=== PATIENT | female | born 1960 | race Caucasian/White ===

== ENCOUNTER 2020-12-28 06:33 | Observation (INO) | payer OTHER ==
[2020-12-24 11:04] LABS: BLOOD UREA NITROGEN 8 mg/dL (7-26); BUN/CREATININE RATIO 10 (6-25); CALCIUM 7.4 mg/dL (8.4-10.2); CARBON DIOXIDE 23 mmol/L (22-29); CHLORIDE 99 mmol/L (98-107); CREATININE, SERUM 0.78 mg/dL (0.57-1.11); EST GLOMERULAR FILTRATION RATE > 60 ML/MIN (60-); GLUCOSE 235 mg/dL (74-118); SODIUM 138 mmol/L (136-145)
[~2020-12-28] VITALS: Ht 167.6 cm; Wt 133.4 kg
[~2020-12-28 06:33] MED LIST: BUPROPION XL150 MG PO; CALCITRIOL0.25 MCG PO; ELIQUIS5 MG PO; FEMARA2.5 MG PO; GABAPENTIN400 MG PO; LEVOTHYROXINE112 MCG PO; METFORMIN HCL500 MG PO; OMEPRAZOLE40 MG PO; SIMVASTATIN20 MG PO; SOTALOL80 MG PO; VIT C PO; VIT D PO
[2020-12-28] MEDS ORDERED: DEXAMETHASONE SOD PHOS 10 MG/1 ML VIAL ONE (07:39)
[2020-12-28] MEDS ORDERED: CELECOXIB 200 MG CAP ONE (07:39)
[2020-12-28] MEDS ORDERED: CEFAZOLIN SOD 1 GM/NS 50ML 100 ML IV ONE (07:40)
[2020-12-28] MEDS ORDERED: GABAPENTIN 300 MG CAP ONE (07:40)
[2020-12-28] MEDS ORDERED: ROPIVACAINE 246.25 MG, EPINEPHRINE HCL 1:1000 1ML 0.5 MG, CLONIDINE HCL 0.08 MG, KETORO... INJ ONE ×5 (08:00)
[2020-12-28] MEDS ORDERED: VANCOMYCIN HCL 1,000 MG ONE (09:17)
[2020-12-28] MEDS ORDERED: SODIUM CHLORIDE 0.9% 500ML 500 ML ONE (09:17)
[2020-12-28] MEDS ORDERED: TRANEXAMIC ACID 1,000 MG/10 ML ML ONE (09:18)
[2020-12-28] MEDS ORDERED: ONDANSETRON HCL INJ 2MG/ML 2ML 2 MG/ML VIAL IV PRN (11:15)
[2020-12-28] MEDS ORDERED: KETOROLAC TROMETHAMINE 30 MG/ML VIAL IV PRN (11:15)
[2020-12-28] MEDS ORDERED: DIPHENHYDRAMINE HCL INJ 50 MG/ML VIAL IV PRN (11:15)
[2020-12-28] MEDS ORDERED: ACETAMINOPHEN 650 MG SUPP PR PRN (11:15)
[2020-12-28] MEDS ORDERED: DOCUSATE SODIUM 100 MG CAP PO PRN (11:15)
[2020-12-28] MEDS ORDERED: ZOLPIDEM TARTRATE 5 MG TAB PO PRN (11:15)
[2020-12-28] MEDS ORDERED: HYDROCODONE/APAP 5MG-325MG TAB PO PRN (11:15)
[2020-12-28] MEDS: SODIUM CHLORIDE 0.9% 1000ML 1,000 ML IV SCH ×2 (11:15→20:59)
[2020-12-28] MEDS ORDERED: FENTANYL CITRATE/PF 100MCG/2 ML INJ ONE (11:36)
[2020-12-28 13:26] VITALS: BP 122/62
[2020-12-28 13:44] VITALS: BP 122/62
[2020-12-28] MEDS: HYDROCODONE/APAP 7.5MG-325MG 1 EA TAB PO PRN ×2 (13:55→23:34)
[2020-12-28 14:00] VITALS: BP 122/62
[2020-12-28 16:05] VITALS: BP 136/78
[2020-12-28] MEDS: ASPIRIN 325 MG TAB PO SCH (17:21)
[2020-12-28] MEDS: CEFAZOLIN SOD 1 GM/NS 50ML 50 ML IV SCH (17:22)
[2020-12-28] MEDS: CELECOXIB 200 MG CAP PO SCH (17:22)
[2020-12-28] MEDS ORDERED: LIDOCAINE HCL 2% LOCAL INJ 5 ML SDV VIAL INJ ONE (17:25)
[2020-12-28] MEDS ORDERED: PROPOFOL IV EMULSION 10 MG/ML 20 ML VIAL ONE (17:25)
[2020-12-28] MEDS ORDERED: ONDANSETRON HCL INJ 2MG/ML 2ML 2 MG/ML VIAL ONE (17:25)
[2020-12-28] MEDS ORDERED: POVIDONE IODINE 0.05% 0.05 % ML PO ONE (17:25)
[2020-12-28] MEDS ORDERED: SEVOFLURANE INHAL SOLN 250 ML PEN BTL ONE (17:25)
[2020-12-28 20:00] VITALS: BP 113/62
[2020-12-28 20:45] VITALS: BP 113/62
[2020-12-29] VITALS: BP 125/76
[2020-12-29] MEDS: CEFAZOLIN SOD 1 GM/NS 50ML 50 ML IV SCH ×2 (02:31→09:14)
[2020-12-29] MEDS ORDERED: SODIUM CHLORIDE 0.9% 250ML 250 ML ONE (02:32)
[2020-12-29] MEDS: SODIUM CHLORIDE 0.9% 1000ML 1,000 ML IV SCH (03:40)
[2020-12-29 04:00] VITALS: BP 112/67
[2020-12-29 05:09] LABS: HEMATOCRIT 28.7 % (34.2-44.1); HEMOGLOBIN 8.6 g/dL (12.0-16.0)
[2020-12-29] MEDS: HYDROCODONE/APAP 7.5MG-325MG 1 EA TAB PO PRN ×2 (05:15→09:12)
[2020-12-29] MEDS ORDERED: LEVOTHYROXINE SODIUM 100 MCG TAB PO SCH (07:30)
[2020-12-29 07:54] VITALS: BP 126/71
[2020-12-29] MEDS: ASPIRIN 325 MG TAB PO SCH (08:32)
[2020-12-29] MEDS: CELECOXIB 200 MG CAP PO SCH (08:32)
[2020-12-29] MEDS ORDERED: SOTALOL HCL 80 MG TAB PO SCH (09:00)
[2020-12-29] MEDS ORDERED: PANTOPRAZOLE SOD 40 MG TABEC PO SCH (09:00)
[2020-12-29] MEDS ORDERED: METFORMIN HCL 500 MG TAB PO SCH (09:00)
[2020-12-29] MEDS ORDERED: GABAPENTIN 400 MG CAP PO SCH (09:00)
[2020-12-29 09:45] VITALS: BP 126/71
[2020-12-29] MEDS ORDERED: ACETAMINOPHEN 1000 MG/100 ML IV PRN (11:15)
[2020-12-29 11:53] VITALS: BP 144/85
[2020-12-29] MEDS ORDERED: SIMVASTATIN 20 MG TAB PO SCH (21:00)
== END 2020-12-29 13:37 | disposition home or self-care (01) ==
LOC: OR 06:33 → PACU V 11:12 → MED/SURG 13:14
PROVIDERS: ADMIT Specialist; ATTEND Specialist
DX: M17.0 Bilateral primary osteoarthritis of knee (principal); E66.01 Morbid (severe) obesity due to excess calories; Z68.42 Body mass index [BMI] 45.0-49.9, adult; D64.9 Anemia, unspecified; E11.9 Type 2 diabetes mellitus without complications; E03.9 Hypothyroidism, unspecified; E78.5 Hyperlipidemia, unspecified; K21.9 Gastro-esophageal reflux disease without esophagitis; Z20.822 Contact with and (suspected) exposure to COVID-19; Z01.818 Encounter for other preprocedural examination
CPT/HCPCS: 27447; 36415 ×3; 73560; 80048; 82948; 85014; 85018; 86850; 86900; 86920; 97110; 97116 ×2; 97161; C1713; G0378 ×2; J0171; J0690 ×2; J1100; J1885 ×2; J2795; J3010; J3370; J7040; J7050; S0164; U0002; J2001; J2405